=== PATIENT | female | born 1995 | race Caucasian/White ===

== ENCOUNTER 2020-04-10 10:41 | Emergency (ER) | payer OTHER ==
[~2020-04-10] VITALS: Ht 154.9 cm; Wt 63.6 kg
[2020-04-10] MEDS ORDERED: LISI-662 PO (10:50)
[2020-04-10] MEDS ORDERED: METF-960 PO (10:51)
[2020-04-10 11:04] VITALS: BP 166/110
== END 2020-04-10 12:32 | disposition left against medical advice (07) ==
LOC: EMS 10:45
DX: J06.9 Acute upper respiratory infection, unspecified (principal); I10 Essential (primary) hypertension; E11.65 Type 2 diabetes mellitus with hyperglycemia; Z20.828 Contact with and (suspected) exposure to other viral communicable diseases; Z79.899 Other long term (current) drug therapy; Z79.84 Long term (current) use of oral hypoglycemic drugs
CPT/HCPCS: 82962; 99283; U0003